=== PATIENT | female | born 1945 | race Caucasian/White ===

== ENCOUNTER 2017-02-02 06:01 | Day surgery (SDC) | payer SELFPAY ==
[2017-01-22 11:52] VITALS: BMI 24.2
[2017-02-02] MEDS ORDERED: LIDOCAINE 1%/EPI 1:100000 (20 ML MULTI DOSE VIAL) ONE ×3 (07:05→08:13)
[2017-02-02] MEDS ORDERED: MIDAZOLAM HCL 2 MG/2 ML SINGLE DOSE VIAL ONE (07:17)
[2017-02-02] MEDS ORDERED: PROPOFOL 20 ML ONE ×11 (07:30→10:42)
[2017-02-02] MEDS ORDERED: SUCCINYLCHOLINE CHLORIDE 200 MG/10 ML VIAL ONE (07:30)
[2017-02-02] MEDS ORDERED: ceFAZolin SODIUM 1 GM VIAL ONE (07:58)
[2017-02-02] MEDS ORDERED: METOPROLOL TARTRATE 5 MG/5 ML VIAL ONE (08:22)
[2017-02-02] MEDS ORDERED: LIDOCAINE 1%/EPI 1:100000 (50 ML MULTI DOSE VIAL) INF ONE ×3 (08:27)
[2017-02-02] MEDS ORDERED: BACITRACIN 3.5 GM OPTHALMIC OINT TUBE ONE (08:44)
[2017-02-02] MEDS ORDERED: PHENYLEPHRINE HCL 10 MG/1 ML SINGLE DOSE VIAL ONE (08:52)
[2017-02-02] MEDS ORDERED: MINERAL OIL 25 ML OIL ONE ×2 (10:19→10:44)
[2017-02-02] MEDS ORDERED: DEXAMETHASONE SOD PHOSPHATE 4 MG/1 ML VIAL ONE (10:32)
[2017-02-02] MEDS ORDERED: ONDANSETRON 4 MG/2 ML VIAL ONE (10:32)
[2017-02-02] MEDS ORDERED: ONDANSETRON 4 MG/2 ML VIAL IVPUSH PRN (11:09)
[2017-02-02] MEDS ORDERED: oxyCODONE HCL 5 MG TABLET PO PRN (11:09)
[2017-02-02] MEDS ORDERED: ACETAMINOPHEN 325 MG TABLET (FP) PO PRN (11:14)
[2017-02-02] MEDS ORDERED: ONDANSETRON 4 MG/2 ML VIAL IVPB PRN (11:14)
[2017-02-02] MEDS ORDERED: HYDROmorphone HCL CARPU-JECT 1 MG/1 ML DISP.SYRIN IVPB PRN (11:14)
[2017-02-02] MEDS ORDERED: OXYCODONE/APAP 5/325MG COMBO TABLET PO PRN (11:14)
[2017-02-02] MEDS ORDERED: LACTATED RINGERS SOLUTION 1,000 ML IV SCH ×2 (11:15)
--- NOTE | 2017-02-02 11:27 | OP ---
Operative Note - Note: Operative Date: 02/02/17 Pre-Operative Diagnosis: laxity skin, face and upper and lower eyes. Operation: Neck and face lift with upper and lower blephroplasty Implants: none Post-Operative Diagnosis: Same as Pre-op Surgeon: Benjamin Little Supervisor [employer]: Laura Schrader Anesthesiologist/KETTLE FRY COOK OPERATOR: Gabriela Gillis Anesthesia: MAC Specimens Removed: skin face and upper and lower eyes Estimated Blood Loss (mls): 20 Drains & Tubes with Location: none Operative Report Dictated: Yes
[2017-02-02] MEDS: CEFAZOLIN 1 GM/D5W 50 ML IVPB SCH ×2 (16:12→21:00)
[2017-02-02] MEDS: OXYCODONE/APAP 5/325MG COMBO TABLET PO PRN (21:00)
[2017-02-03] MEDS: OXYCODONE/APAP 5/325MG COMBO TABLET PO PRN (01:50)
[2017-02-03] MEDS: CEFAZOLIN 1 GM/D5W 50 ML IVPB SCH ×2 (02:53→09:44)
[2017-02-03 06:45] VITALS: TEMP 98
[2017-02-03 10:24] VITALS: BP 149/70; PULSE 68
--- NOTE | 2017-02-03 18:51 | OP ---
DATE OF OPERATION: 02/02/2017 SURGEON: Benjamin Little MD PUBLIC STENOGRAPHER SURGEON: AGNES Recinos PREOPERATIVE DIAGNOSES: 1. Aging face deformity. 2. Blepharochalasis. POSTOPERATIVE DIAGNOSES: 1. Aging face deformity. 2. Blepharochalasis. OPERATIVE PROCEDURE: 1. Upper and lower lid blepharoplasty. 2. Facelift. OPERATIVE INDICATIONS: The patient is a woman who complains of aging face deformity after previous facial cosmetic surgery in the past. The risks and benefits of surgical versus nonsurgical alternatives as well as the material complications including no surgery were discussed with the patient on multiple occasions preoperatively and she agreed to the planned procedure. The patient was marked in the sitting position in the holding area prior to the surgery with upper and lower lid blepharoplasty as well as a facelift. The patient understood the scar deformities as well as the implications of the surgeries. OPERATIVE PROCEDURE IN DETAIL: The patient was taken to the operating room and after induction of monitored care anesthesia in the supine position. The face was prepped with ChloraPrep over its entire extent as well as the neck and shoulders. The markings were remeasured and reconfirmed and then 1% local lidocaine anesthesia at the 1:100,000 was injected into the eyelids in the usual fashion, as well as in the face in the incisions at the neck and the cheeks. At this point, after allowing topical anesthesia and hemostasis, an incision was made using the Inveshare needle tip cautery and the upper eyelids scanned according to the pattern. The skin in the upper eyelids was excised down to the underlying septum and discarded. The areas of medial fat pad were coagulated and excised. This was carried out symmetrically on the right and left lids. The wounds were closed using 5-0 Prolene sutures in a running fashion. Attention was then turned to the lower lids. A pinch blepharoplasty incision was carried out using the sharp curved scissor excising skin down to the orbicularis muscle. Hemostasis was obtained with the bipolar electrocautery throughout, and then the skin was closed using 5-0 fast-absorbing catgut suture in a running fashion along both lower eyelids symmetrically. Good shape and contour was seen. An iced saline dressing was placed over the eyes and attention was turned to the face. Preauricular incisions were extended into the hairline superiorly along the perviously placed scars and a retrotragal incision was carried out. The exact same incisions were used from previous surgery and facelifting was carried out down to the underlying SMAS. Hemostasis was meticulously obtained throughout the procedure. The skin was raised in the usual fashion for facelifting surgery. A platysmal flap was created around the lower earlobe and then using 2-0 Mersilene suture the platysma was sutured to the mastoid process creating contour for the neck. Multiple sutures were placed along the SMAS platysmal layer elevating into its new anatomic position. Hemostasis was again meticulously obtained, and then the skin was advanced, excised, and closed using 3-0 Biosyn suture on the deep tissue and running 4-0 Prolene behind the ear and in front of the ear in preauricular fashion. The exact same procedure was carried out symmetrically on the opposite side, and good shape and contour was seen after the patient was completed. A fluff dressing with cotton batting, mineral oil, and a wrap with Eddy bandage and Coban was placed into the face and neck. She tolerated the procedure well. She was awakened and transferred to the recovery room in satisfactory condition. ROQUE LITTLE M.D. [id number]
== END 2017-02-03 10:32 | disposition home or self-care (01) ==
LOC: FASU 06:01 → FM/S 13:51 → FASU 02-03 10:32
PROVIDERS: ATTEND Plastic Surgery
PROC: 080P0ZZ Alteration of Left Upper Eyelid, Open Approach (ICD-10-PCS; 2017-02-02)
PROC: 080Q0ZZ Alteration of Right Lower Eyelid, Open Approach (ICD-10-PCS; 2017-02-02)
PROC: 0W020ZZ Alteration of Face, Open Approach (ICD-10-PCS; 2017-02-02)
PROC: 0W060ZZ Alteration of Neck, Open Approach (ICD-10-PCS; 2017-02-02)
PROC: 080R0ZZ Alteration of Left Lower Eyelid, Open Approach (ICD-10-PCS; principal; 2017-02-02 08:15)
PROC: 080N0ZZ Alteration of Right Upper Eyelid, Open Approach (ICD-10-PCS; 2017-02-02 08:15)
DX: Z41.1 Encounter for cosmetic surgery (principal); L98.8 Other specified disorders of the skin and subcutaneous tissue; H02.35 Blepharochalasis left lower eyelid; H02.34 Blepharochalasis left upper eyelid; H02.33 Blepharochalasis right eye, unspecified eyelid; H02.31 Blepharochalasis right upper eyelid
CPT/HCPCS: 94010; 94760